=== PATIENT | male | born 1955 | race Caucasian/White ===

== ENCOUNTER 2023-08-31 09:01 | Day surgery (SDC) | payer OTHER, MEDICARE ==
[2023-08-29 12:56] VITALS: BMI 29.0
[2023-08-31] MEDS ORDERED: ceFAZolin SODIUM 1 GM VIAL ONE ×2 (09:50→09:52)
[2023-08-31] MEDS ORDERED: VANCOMYCIN 1,000 MG VIAL (RESTRICTED TO ID ONLY) ONE (09:52)
[2023-08-31] MEDS ORDERED: THROMBIN (BOVINE) 5,000 UNIT VIAL TP ONE (09:52)
[2023-08-31] MEDS ORDERED: CEFAZOLIN 2 GM in DEXTROSE 5%-WATER - 50 ML IVPB ONE (11:00)
[2023-08-31] MEDS ORDERED: BUPIVICAINE 0.25%/MORPH PF/KETOROLAC - 51ML DISP.SYRINGE IA ONE ×3 (11:00→14:26)
[2023-08-31] MEDS ORDERED: TRANEXAMIC ACID 1000 MG/10 ML VIAL IVPUSH ONE (11:00)
[2023-08-31] MEDS ORDERED: ACETAMINOPHEN INJECTION 100 ML IVPB ONE (11:44)
[2023-08-31] MEDS ORDERED: BUPIVACAINE HCL/PF 0.5% (5 MG/ML) 30 ML VIAL IJ ONE (11:44)
[2023-08-31] MEDS ORDERED: MIDAZOLAM HCL 2 MG/2 ML SINGLE DOSE VIAL ONE ×2 (11:44→14:44)
[2023-08-31] MEDS ORDERED: BUPIVACAINE LIPOSOME/PF (EXPAREL) 266 MG/20 ML VIAL ONE (11:44)
[2023-08-31] MEDS ORDERED: PROPOFOL 20 ML ONE ×4 (12:05→15:16)
[2023-08-31] MEDS ORDERED: KETOROLAC TROMETHAMINE 30 MG/1 ML VIAL ONE (13:23)
[2023-08-31] MEDS ORDERED: ONDANSETRON 4 MG/2 ML VIAL ONE (13:23)
[2023-08-31] MEDS ORDERED: DEXAMETHASONE SOD PHOSPHATE 4 MG/1 ML VIAL ONE (13:23)
[2023-08-31] MEDS ORDERED: TRANEXAMIC ACID 1000 MG/10 ML VIAL ONE (14:50)
[2023-08-31] MEDS ORDERED: ONDANSETRON 4 MG/2 ML VIAL IVPUSH PRN (15:54)
[2023-08-31] MEDS ORDERED: LACTATED RINGERS SOLUTION 1,000 ML IV SCH (16:00)
[2023-08-31] MEDS: LACTATED RINGERS SOLUTION 1,000 ML IV SCH (17:54)
[2023-08-31] MEDS: oxyCODONE HCL 5 MG TABLET PO PRN ×2 (18:31→22:04)
[2023-08-31] MEDS: CEFAZOLIN SODIUM 2 GM in DEXTROSE 5%-WATER 100 ML IVPB SCH (19:43)
[2023-08-31] MEDS ORDERED: CEFAZOLIN 2 GM in DEXTROSE 5%-WATER - 50 ML IVPB SCH (20:00)
[2023-08-31] MEDS: ESCITALOPRAM OXALATE 20 MG TABLET PO SCH (22:03)
[2023-08-31] MEDS: SENNOSIDES/DOCUSATE COMBO (SENNA PLUS) TABLET (UD) PO SCH (22:03)
[2023-08-31] MEDS: ZOLPIDEM TARTRATE 5 MG TABLET PO SCH (22:03)
[2023-08-31] MEDS: lamoTRIgine 100 MG TABLET PO SCH (22:03)
[2023-08-31] MEDS: ACETAMINOPHEN 325 MG TABLET (FP) PO PRN (22:06)
[2023-09-01] MEDS: oxyCODONE HCL 5 MG TABLET PO PRN ×5 (01:54→19:54)
[2023-09-01] MEDS: CEFAZOLIN SODIUM 2 GM in DEXTROSE 5%-WATER 100 ML IVPB SCH (04:29)
[2023-09-01] MEDS: ASPIRIN 325 MG TABLET PO SCH (07:43)
[2023-09-01] MEDS: ACETAMINOPHEN 325 MG TABLET (FP) PO PRN (07:44)
[2023-09-01] MEDS: ESCITALOPRAM OXALATE 10 MG TABLET PO SCH (09:06)
[2023-09-01] MEDS: metoPROLOL SUCCINATE 25 MG TAB.SR.24H (FP) PO SCH (09:06)
[2023-09-01] MEDS: MULTIVITAMINS (DAILY MVI) TABLET (FP) PO SCH (09:06)
[2023-09-01] MEDS: PANTOPRAZOLE 40 MG TABLET PO SCH (09:06)
[2023-09-01] MEDS: lamoTRIgine 25 MG TABLET PO SCH (09:07)
[2023-09-01] MEDS: SENNOSIDES/DOCUSATE COMBO (SENNA PLUS) TABLET (UD) PO SCH ×2 (09:07→21:37)
[2023-09-01] MEDS ORDERED: PATIENT'S OWN MEDICATION (NON-FORMULARY) (Mirabegron [Myrbetriq] 50 MG Tab.Er.24h) PO SCH (10:00)
[2023-09-01] MEDS ORDERED: ACETAMINOPHEN 1000 MG/100 ML BAG IVPB PRN (10:10)
[2023-09-01] MEDS ORDERED: KETOROLAC TROMETHAMINE 30 MG/1 ML VIAL IVPUSH PRN (10:10)
[2023-09-01] MEDS: LACTATED RINGERS SOLUTION 1,000 ML IV SCH (16:26)
[2023-09-01] MEDS: ESCITALOPRAM OXALATE 20 MG TABLET PO SCH (21:37)
[2023-09-01] MEDS: lamoTRIgine 100 MG TABLET PO SCH (21:37)
[2023-09-01] MEDS: ZOLPIDEM TARTRATE 5 MG TABLET PO SCH (22:45)
[2023-09-01 23:33] VITALS: RESP 18
[2023-09-02] MEDS: oxyCODONE HCL 5 MG TABLET PO PRN ×2 (06:34→09:35)
[2023-09-02 08:33] LABS: HEMATOCRIT 35.2 % (35.4-49); HEMOGLOBIN 11.5 G/dL (11.7-16.9); MCH 30.6 pg (25.7-33.7); MCHC 32.8 g/dl (32.0-35.9); MEAN CELL VOLUME 93.4 fl (80-96); MEAN PLT VOLUME 8.6 fl (7.5-11.1); PLATELET COUNT 176.3 10^3/uL (134-434); RBC 3.77 10^6/uL (4.00-5.60); RDW 14.3 % (11.9-15.9); WHITE BLOOD COUNT 9.2 10^3/uL (4.0-10.8)
[2023-09-02] MEDS: ESCITALOPRAM OXALATE 10 MG TABLET PO SCH (09:05)
[2023-09-02] MEDS: lamoTRIgine 25 MG TABLET PO SCH (09:06)
[2023-09-02] MEDS: SENNOSIDES/DOCUSATE COMBO (SENNA PLUS) TABLET (UD) PO SCH (09:08)
[2023-09-02] MEDS: metoPROLOL SUCCINATE 25 MG TAB.SR.24H (FP) PO SCH (09:08)
[2023-09-02] MEDS: PANTOPRAZOLE 40 MG TABLET PO SCH (09:09)
[2023-09-02] MEDS: ASPIRIN 325 MG TABLET PO SCH (09:09)
[2023-09-02] MEDS: MULTIVITAMINS (DAILY MVI) TABLET (FP) PO SCH (09:09)
[2023-09-02 09:22] VITALS: BP 127/64; PULSE 74; TEMP 98.5
== END 2023-09-02 11:52 ==
LOC: FASU 09:01 → FASUSAT 09:01 → FM/S 17:19 → FASUSAT 09-02 11:52
PROVIDERS: ATTEND Orthopaedic Surgery
PROC: 8E0Y0CZ Robotic Assisted Procedure of Lower Extremity, Open Approach (ICD-10-PCS; 2023-08-31)
PROC: 0SRD0M9 Replacement of Left Knee Joint with Lateral Unicondylar Synthetic Substitute, Cemented, Open Approach (ICD-10-PCS; principal; 2023-08-31 12:34)
DX: M17.0 Bilateral primary osteoarthritis of knee (principal)
CPT/HCPCS: 20985; 27446; C1776; 36415; 73560-TC-LT-FY; 73560-TC-RT-FY; 85027; 94760; 97010-GP; 97116-GP; 97162-GP; C1889